=== PATIENT | female | born 1965 | race Caucasian/White ===

== ENCOUNTER → 2019-05-31 10:33 | Outpatient (CLI) | payer OTHER, BC, SELFPAY ==
--- NOTE | 2019-05-31 10:35 | DI.RAD.S_ITS ---
PROCEDURE: XR KNEE RT 3V INDICATIONS: Screening TECHNIQUE: Pre-views of the knee were acquired. COMPARISON: None. FINDINGS: Bones: No fractures or dislocations. No suspicious bony lesions. There is a slight degree of narrowing of the joint interspace at the medial and lateral compartment and the lateral facet of the patellofemoral joint. Soft tissues: No joint effusion. No suspicious soft tissue calcifications. IMPRESSION: No acute trauma found. Mild degenerative osteoarthritis in all 3 compartments of the right knee. Dictated by: Ernst Owens M.D. on 05/31/2019 at 11:10 Approved by: Ernst Owens M.D. on 05/31/2019 at 11:12
[2019-05-31 11:35] LABS: Hematocrit 38.9 % (36-46); Hemoglobin 12.9 g/dL (12.0-16.0); Mean Corpuscular HGB Conc 33.1 % (30-36); Mean Corpuscular Hemoglobin 29.7 PG (26-34); Mean Corpuscular Volume 89.7 fL (80-100); Platelet Count 241 X10^3/uL (150-400); Red Blood Cell Count 4.33 X10^6/uL (4.0-5.2); Red Cell Distribution Width 16.6 % (11.6-14.8); White Blood Cell Count 5.7 X10^3/uL (4.5-11.0)
[2019-05-31 11:43] LABS: Alanine Aminotransferase 29 IU/L (9-52); Albumin 4.2 g/dL (3.5-5.0); Albumin Globulin Ratio 1.3 (1.0-2.8); Alkaline Phosphatase 84 U/L (38-126); Aspartate Aminotransferase 28 IU/L (14-36); Bilirubin Total 0.5 mg/dL (0.2-1.3); Blood Urea Nitrogen 12 mg/dL (7-17); Calcium 9.2 mg/dL (8.4-10.2); Carbon Dioxide 24 mmol/L (22-32); Chloride 105 mmol/L (98-107); Cholesterol 199 mg/dL (140-199); Estimated Glomerular Filt Rate > 60.0 mL/min (>60); Globulin 3.2 g/dL (1.7-4.1); Glucose 98 mg/dL (70-100); HDL Cholesterol 64 mg/dL (40-60); HEMOLYSIS < 15 (0-50); LDL Cholesterol Calculated 112 mg/dL (<100); Potassium 4.5 mmol/L (3.4-5.1); Sodium 139 mmol/L (137-145); Total Protein 7.4 g/dL (6.3-8.2); Triglycerides 113 mg/dL (35-150)
== END ==
PROVIDERS: Family Provider Family Medicine; PCP Family Medicine; Visit Provider Nurse Practitioner Family
DX: Z00.00 Encounter for general adult medical examination without abnormal findings (principal); G89.29 Other chronic pain; M25.561 Pain in right knee; Z13.6 Encounter for screening for cardiovascular disorders
CPT/HCPCS: 36415; 73562; 80053; 80061; 85027

== ENCOUNTER → 2019-06-07 11:28 | Outpatient (CLI) | payer OTHER, BC, SELFPAY ==
--- NOTE | 2019-06-07 11:30 | DI.MG.S_ITS ---
BILATERAL DIGITAL SCREENING MAMMOGRAM 3D/2D WITH CAD: 06/07/2019 CLINICAL: Routine screening. Comparison is made to exams dated: 02/06/2008 mammogram and 08/18/2006 mammogram - [facility]. There are scattered fibroglandular elements in both breasts. Current study was also evaluated with a Computer Aided Detection (CAD) system. There is an irregular focal asymmetry in the right breast superior lateral quadrant middle depth. There is possible architectural distortion associated with the focal asymmetry. There is an oval asymmetry in the left breast lateral region anterior depth seen only on the RCC view. No other significant masses, calcifications, or other findings are seen in either breast. IMPRESSION: INCOMPLETE: NEEDS ADDITIONAL IMAGING EVALUATION 1) The irregular focal asymmetry in the right breast superior lateral quadrant middle depth is indeterminate. Additional views with possible ultrasound are recommended. 2) The oval asymmetry in the left breast lateral region anterior depth seen only on the RCC view is indeterminate. Additional views with possible ultrasound are recommended. This exam was interpreted at Station ID: [id number]. NOTE: For mammograms, a report in lay terms will be sent to the patient. Approximately 15% of breast malignancies will not be visualized mammographically. In the management of a palpable breast mass, a negative mammogram must not discourage biopsy of a clinically suspicious lesion. Electronically Signed By: Vinay Hatch M.D. ecl/:06/07/2019 14:31:09 letter sent: Additional Imaging Needed ACR BI-RADS Category 0: Incomplete 3340F
== END ==
PROVIDERS: Family Provider Family Medicine; PCP Family Medicine; Visit Provider Nurse Practitioner Family
DX: Z12.31 Encounter for screening mammogram for malignant neoplasm of breast (principal)
CPT/HCPCS: 77063; 77067

== ENCOUNTER → 2019-06-25 12:52 | Outpatient (CLI) | payer OTHER, BC, SELFPAY ==
--- NOTE | 2019-06-25 12:54 | DI.US.S_ITS ---
PROCEDURE: US BREAST RT LIMITED COMPARISON: None. INDICATIONS: abnormal mammo FINDINGS: IMPRESSION: Dictated by: Trina Mendosa M.D. on 06/27/2019 at 9:03 Approved by: Trina Mendosa M.D. on 06/27/2019 at 9:08
--- NOTE | 2019-06-25 12:54 | DI.MG.S_ITS ---
BILATERAL DIGITAL DIAGNOSTIC MAMMOGRAM 3D/2D WITH ADDITIONAL VIEWS: 06/25/2019 CLINICAL: Additional evaluation requested from prior study. Comparison is made to exams dated: 06/07/2019 mammogram, 02/06/2008 mammogram, and 08/18/2006 mammogram - [facility]. There are scattered fibroglandular elements in both breasts. The irregular focal asymmetry in the right breast with possible architectural distortion at 11 o'clock middle depth is less prominent on additional views. There asymmetry in the left breast anterior depth lateral region seen on the craniocaudal view only is not seen in additional views. No other significant masses or calcifications are seen in either breast. IMPRESSION: INCOMPLETE: NEEDS ADDITIONAL IMAGING EVALUATION The irregular focal asymmetry in the right breast at 11 o'clock middle depth is indeterminate. A targeted ultrasound of the right breast is recommended and will be performed immediately following this exam. The asymmetry in the left breast anterior depth lateral region seen on the screening mammogram likely respresents superimposed fibroglandular tissue and is benign. This exam was interpreted at Station ID: [id number]. NOTE: For mammograms, a report in lay terms will be sent to the patient. Approximately 15% of breast malignancies will not be visualized mammographically. In the management of a palpable breast mass, a negative mammogram must not discourage biopsy of a clinically suspicious lesion. Electronically Signed By: Trina Mendosa M.D. lk/:06/25/2019 13:27:50 ACR BI-RADS Category 0: Incomplete 3340F
== END ==
PROVIDERS: PCP Family Medicine; Visit Provider Nurse Practitioner Family
DX: R92.8 Other abnormal and inconclusive findings on diagnostic imaging of breast (principal); N64.89 Other specified disorders of breast
CPT/HCPCS: 76642; 77066; G0279

== ENCOUNTER 2019-08-26 07:39 | Day surgery (SDC) | payer OTHER, BC, SELFPAY ==
[2019-08-26] MEDS: SODIUM CHLORIDE 0.9% 1,000 ML 200 ML IV (07:24)
[2019-08-26 07:48] VITALS: BP 142/85; PULSE 83; RESP 16; TEMP 36.2; O2SAT 93; BMI 43.1
--- NOTE | 2019-08-26 08:04 | PM.HP.1 ---
History of Present Illness History of Present Illness Date Patient Seen: 08/26/19 Time Patient Seen: 08:04 Chief complaint: [id number] Narrative: Patient presents for colorectal screening. They have never had any previous examination for such. No personal or family history of colon cancer. On further history denies any recent gastrointestinal symptoms. No nausea, vomiting, abdominal pain, loss of appetite, unexplained weight loss, change in bowel habits, diarrhea, constipation, melena, hematochezia, or bright red blood per rectum. Patient History Medical History Abnormal Pap smear of cervix (Resolved ~1995) Surgical History History of tonsillectomy (Resolved) Status post delivery Status post delivery Status post delivery Status post delivery Status post cone biopsy of cervix Status post tubal ligation Family & Social History Family History Father Age: 72 Hypertension Mother Cancer Tobacco & Substance use: Smoking Status Former smoker alcohol intake current Meds Home Medications and Allergies Home Medications Medication Instructions Recorded Confirmed Type acetaminophen 500 mg tablet 1,000 mg PO QID PRN 05/16/19 06/14/19 History ibuprofen 200 mg tablet 400 mg PO DAILY PRN tab 05/16/19 06/14/19 History varicella-zoster [id number] (PF) 50 50 mcg IM ONCE #1 each 05/16/19 06/14/19 Rx mcg/0.5 mL IM susp, kit Allergies Allergy/AdvReac Type Severity Reaction Status Date / Time No Known Drug Allergies Allergy Unverified 06/14/19 09:34 Review of Systems Review of Systems Narrative: A complete review of systems is negative except as noted in the HPI Exam Narrative Exam Narrative: General-no acute distress, well nourished HEENT-moist mucous membranes, no scleral icterus Neck-supple, no lymphadenopathy Chest- non labored respirations, clear to auscultation bilaterally Cardiac-regular rate no peripheral edema Abdomen-soft, nontender, non distended Extremities-warm, well perfused Neurological-alert and oriented, no focal deficits Assessment & Plan Assessment & Plan narrative: The patient requires colorectal screening and colonoscopy is recommended. Technical details were discussed. Risks, benefits, alternatives explained. Risks including but not limited to myocardial infarction, aspiration, bleeding, pain, missed lesion, incomplete examination, need for further radiographic studies, colonic perforation, and need for major abdominal surgery were discussed. All questions were answered to their satisfaction, and they are in agreement with this plan.
[2019-08-26] MEDS: MIDAZOLAM 5 MG/5 ML VIAL IV (08:44)
[2019-08-26] MEDS: fentaNYL 250 MCG/5 ML INJ IV (08:44)
--- NOTE | 2019-08-26 08:45 | PM.OP.ENDO ---
Operative Date/Time/Diagnoses Date of procedure: 08/26/19 Time of procedure: 08:45 Pre-op diagnosis: screening colonoscopy Post-op diagnosis: same Procedure & Clinicians Study performed: Colonoscopy Same procedure as scheduled: Yes Indications: 54-year-old woman no previous colonoscopy presents for some routine screening Surgeon: Damian Sahni Procedure Notes SCOAP/Timeout: Performed Procedure in detail: Patient placed in left lateral decubitus position. Time out was performed. Procedural sedation was administered with Versed and Fentanyl. A rectal exam demonstrated no external hemorrhoids no internal masses. Colonoscopy scope was placed into the rectum and advanced through the colon to the cecum. The ileocecal valve was identified. The scope was then slowly withdrawn examining colon thoroughly in all directions. The colonoscopy was notable for the following 1. Diverticulosis 2. Grade 1-2 internal hemorrhoids 3. Quality of prep moderate Scope withdrawal time: 6 Sedation minutes: 22 Findings: diverticulosis and internal hemorrhoids Specimen(s): none sent Complications: none Impression: diverticulosis Post-procedure Recommendations: Colonscopy in 10 years Disposition: same day surgery
[2019-08-26 08:49] VITALS: BP 156/87; PULSE 84; RESP 19; TEMP 36.2; O2SAT 96
[2019-08-26 08:55] VITALS: BP 138/79; PULSE 84; RESP 18; O2SAT 95
[2019-08-26 09:00] VITALS: BP 137/78; PULSE 84; RESP 95; O2SAT 17
[2019-08-26 09:09] VITALS: BP 128/71; PULSE 83; RESP 16; O2SAT 96
[2019-08-26 09:20] VITALS: BP 119/77; PULSE 72; RESP 16; TEMP 36.2; O2SAT 98
== END 2019-08-26 09:27 | disposition home or self-care (01) ==
PROVIDERS: PCP Family Medicine; Visit Provider Surgery
PROC: 0DJD8ZZ Inspection of Lower Intestinal Tract, Via Natural or Artificial Opening Endoscopic (ICD-10-PCS; CPT 45378; principal; 2019-08-26 08:30)
DX: Z12.11 Encounter for screening for malignant neoplasm of colon (principal); K57.30 Diverticulosis of large intestine without perforation or abscess without bleeding; K64.0 First degree hemorrhoids
CPT/HCPCS: 45378; 99152; J2250; J3010

== ENCOUNTER → 2020-09-03 07:39 | Outpatient (CLI) | payer OTHER, SELFPAY ==
[2020-09-03 08:43] LABS: Hemoglobin 12.1 g/dL (12.0-16.0); Mean Corpuscular HGB Conc 32.6 % (30-36); Mean Corpuscular Hemoglobin 29.8 PG (26-34); Mean Corpuscular Volume 91.3 fL (80-100); Platelet Count 250 X10^3/uL (150-400); Red Blood Cell Count 4.05 X10^6/uL (4.0-5.2); Red Cell Distribution Width 14.9 % (11.6-14.8); White Blood Cell Count 4.6 X10^3/uL (4.5-11.0)
[2020-09-03 09:03] LABS: Creatinine Urine Random 141.5 mg/dL
[2020-09-03 09:07] LABS: Microalbumi Creatinin Ratio Ur 9.8 ug/mg CR (<30); Microalbumin Urine Random 1.4 mg/dL (0-1.6)
[2020-09-03 09:10] LABS: Alanine Aminotransferase 30 IU/L (<35); Albumin 3.8 g/dL (3.5-5.0); Albumin Globulin Ratio 1.4 (1.0-2.8); Alkaline Phosphatase 78 U/L (38-126); Aspartate Aminotransferase 29 IU/L (14-36); BUN Creatinine Ratio 24.1 (6-22); Bilirubin Total 0.3 mg/dL (0.2-1.3); Blood Urea Nitrogen 14 mg/dL (7-17); Calcium 9.7 mg/dL (8.4-10.2); Carbon Dioxide 28 mmol/L (22-32); Chloride 104 mmol/L (98-107); Cholesterol 191 mg/dL (140-199); Estimated Glomerular Filt Rate > 60.0 mL/min (>60); Globulin 2.7 g/dL (1.7-4.1); Glucose 111 mg/dL (70-100); HDL Cholesterol 59 mg/dL (40-60); HEMOLYSIS < 15 (0-50); LDL Cholesterol Calculated 105 mg/dL (<100); Potassium 4.6 mmol/L (3.4-5.1); Sodium 137 mmol/L (137-145); Total Protein 6.5 g/dL (6.3-8.2); Triglycerides 134 mg/dL (35-150)
[2020-09-03 13:26] LABS: Hemoglobin A1C% w Est Avg Glu 5.7 % (4.0-6.0)
== END ==
PROVIDERS: PCP Nurse Practitioner Family; Referring Provider Nurse Practitioner Family; Visit Provider Nurse Practitioner Family
DX: Z00.00 Encounter for general adult medical examination without abnormal findings (principal); I10 Essential (primary) hypertension; E78.2 Mixed hyperlipidemia
CPT/HCPCS: 36415; 80053; 80061; 82043; 82570; 83036; 85027

== ENCOUNTER → 2021-03-20 12:14 | Outpatient (CLI) | payer OTHER, SELFPAY | PROVIDERS: PCP Nurse Practitioner Family; Referring Provider Nurse Practitioner Family; Visit Provider Nurse Practitioner Family | DX: E60 Dietary zinc deficiency (principal); L71.0 Perioral dermatitis | CPT/HCPCS: 36415; 84630 ==

== ENCOUNTER → 2021-03-23 15:51 | Outpatient (CLI) | payer OTHER, SELFPAY | PROVIDERS: PCP Nurse Practitioner Family; Visit Provider Nurse Practitioner Family | DX: L71.0 Perioral dermatitis (principal); R21 Rash and other nonspecific skin eruption | CPT/HCPCS: 87102 ==